=== PATIENT | male | born 1945 | race Hispanic/Latino ===

== ENCOUNTER 2018-07-21 16:11 | Emergency (ER) | payer MEDICARE ==
[2018-07-21 17:16] LABS: #Eosinphils 0.3 thou/uL (0.0-0.7); #Lymphocytes 2.1 thou/uL (1.20-3.40); #Monocytes 0.6 thou/uL (0.11-0.59); #Neutrophils 5.7 thou/uL (1.40-6.50); %Basophils 0.3 % (0.0-1.0); %Eosinophils 3.4 % (0.0-10.0); %Lymphocytes 24.1 % (21.0-51.0); %Monocytes 7.1 % (0.0-10.0); Hemoglobin 13.1 g/dL (14.0-18.0); Mean Corpuscular HGB CONC 30.8 g/dL (32.0-36.0); Mean Corpuscular Hemoglobin 26.9 pg (27.0-31.0); Mean Corpuscular Volume 87.1 fL (78.0-98.0); Mean Platelet Volume 7.6 fL (7.4-10.4); Platelet Count 232 thou/uL (130-400); RBC Distribution Width 13.5 % (11.5-14.5); Red Blood Cell (RBC) Count 4.89 mill/uL (4.70-6.10); White Blood Cell (WBC) Count 8.8 thou/uL (4.8-10.8)
[2018-07-21 17:36] LABS: ALT (SGPT) 14 U/L (8-55); AST (SGOT) 20 U/L (5-34); Alkaline Phosphatase 82 U/L (40-150); Anion Gap 12 mmol/L (10-20); BUN (Urea Nitrogen) 34 mg/dL (8.4-25.7); Bilirubin, Total 0.7 mg/dL (0.2-1.2); Calc. Creatinine Clearance 0 mL/min (70-130); Calcium 9.4 mg/dL (7.8-10.44); Carbon Dioxide 29 mmol/L (23-31); Chloride 105 mmol/L (98-107); Estimated GFR-MDRD 27; Glucose 179 mg/dL (83-110); Potassium 4.1 mmol/L (3.5-5.1); Sodium 142 mmol/L (136-145)
[2018-07-21 17:41] LABS: CKMB 5.5 ng/mL (0-6.6); Troponin I Less than 0.010 ng/mL (< 0.028)
--- NOTE | 2018-07-21 17:43 | RAD ---
FRONTAL VIEW CHEST: 07/21/18 COMPARISON: 04/11/03 INDICATION: Dyspnea. FINDINGS: There is air density underlying the left hemidiaphragm which favors a gastric bubble. There is also l ucent appearance of the cephalad aspect of the right hemidiaphragm. Mild left basilar atelectasis is seen. The cardiac silhouette is normal in size. IMPRESSION: Subtle lucency overlying the cephalad aspect of the right hemidiaphragm. This is favored to reflex brown perimposition of lung parenchyma, but the possibility of free air cannot be excluded. If there is con cern for an acute abdomen, recommend CT of the abdomen to further assess. Left basilar atelectasis. POS: [facility]
[2018-07-21] MEDS ORDERED: Furosemide 40 MG/4 ML VIAL ONE (17:58)
== END 2018-07-21 19:00 | disposition home or self-care (01) ==
LOC: ERS 16:11
DX: R60.0 Localized edema (principal); I10 Essential (primary) hypertension; E11.9 Type 2 diabetes mellitus without complications; E78.00 Pure hypercholesterolemia, unspecified; Z87.891 Personal history of nicotine dependence; Z79.82 Long term (current) use of aspirin; Z79.899 Other long term (current) drug therapy
CPT/HCPCS: 36415; 71045; 80053; 82553; 83880; 84484; 85025; 93005; 96374; J1940

== ENCOUNTER 2020-08-14 17:49 | Inpatient (IN) | payer MEDICARE ==
[~2020-08-14 17:49] MED LIST: Iopamidol-370 76% 500 ML 1 ML ONE
[2020-08-14 18:33] LABS: #Eosinphils 0.1 thou/uL (0.0-0.7); #Monocytes 0.6 thou/uL (0.11-0.59); #Neutrophils 5.2 thou/uL (1.40-6.50); %Basophils 0.1 % (0.0-1.0); Mean Corpuscular HGB CONC 32.1 g/dL (32.0-36.0); Mean Corpuscular Hemoglobin 27.8 pg (27.0-31.0); Mean Corpuscular Volume 86.5 fL (78.0-98.0); Mean Platelet Volume 8.4 fL (7.4-10.4); Platelet Count 236 thou/uL (130-400); RBC Distribution Width 14.3 % (11.5-14.5); Red Blood Cell (RBC) Count 4.68 mill/uL (4.70-6.10); White Blood Cell (WBC) Count 7.8 thou/uL (4.8-10.8)
[2020-08-14 18:55] LABS: ALT (SGPT) 13 U/L (8-55); AST (SGOT) 19 U/L (5-34); Albumin 3.5 g/dL (3.4-4.8); Alkaline Phosphatase 75 U/L (40-110); Anion Gap 11 mmol/L (10-20); BUN (Urea Nitrogen) 18 mg/dL (8.4-25.7); Bilirubin, Total 0.5 mg/dL (0.2-1.2); Calc. Creatinine Clearance 0 mL/min (70-130); Calcium 8.9 mg/dL (7.8-10.44); Carbon Dioxide 30 mmol/L (23-31); Chloride 103 mmol/L (98-107); Globulin 2.9 g/dL (2.4-3.5); Glucose 155 mg/dL (83-110); Lipase 7 U/L (8-78); Potassium 4.1 mmol/L (3.5-5.1); Protein, Total 6.4 g/dL (5.8-8.1); Sodium 140 mmol/L (136-145)
[2020-08-14] MEDS ORDERED: Cefepime 2 GM VIAL ONE (19:51)
--- NOTE | 2020-08-14 19:55 | RAD ---
SINGLE VIEW OF THE CHEST: 08/14/20 COMPARISON: 07/21/18. HISTORY: Altered mental status. FINDINGS: Single view of the chest shows an enlarged cardiomediastinal silhouette. Atherosclerotic calcificatio ns are seen in the aorta. There is no evidence of consolidation, mass, or pleural effusion. Degenerat dany changes are seen in the spine. IMPRESSION: Cardiomegaly. POS: [facility]
[2020-08-14 20:04] LABS: Bacteria/HPF None Seen HPF (None Seen); Bilirubin Negative (Negative); Blood, Urine 1+ (Negative); Clarity Clear (Clear); Glucose, Urine (Dipstick) 30 mg/dL (Negative); Ketone, Urine Negative (Negative); Leukocyte Negative Leu/uL (Negative); Mucous/LPF 1+ LPF (<2+); Nitrite Negative (Negative); Protein, Urine (Dipstick) 300 mg/dL (Neg-Trace); RBC/HPF 0-3 HPF (0-3); Specific Gravity, Urine 1.017 (1.002-1.036); Squamous Epithelial None Seen HPF (0-3); Urobilinogen Normal mg/dL (Less than 2); WBC/HPF None Seen HPF (0-3)
[2020-08-14 20:13] LABS: Amphetamine Not Detected (NotDetected); Barbiturates Screen Not Detected (NotDetected); Benzodiazepine Screen Not Detected (NotDetected); Cocaine Metabolite Screen Not Detected (NotDetected); Medtox Control Line Valid? VALID (VALID); Medtox Reader # READER 4; Methadone Not Detected (NotDetected); Methamphetamine Not Detected (NotDetected); Opiate Screen Not Detected (NotDetected); Oxycodone Screen Detected (NotDetected); Phencyclidine (PCP) Not Detected (NotDetected); THC/Cannabinoid Screen Not Detected (NotDetected); Tricyclic Screen Not Detected (NotDetected)
--- NOTE | 2020-08-14 20:47 | CT ---
CT CERVICAL SPINE WITHOUT CONTRAST: 08/14/20 COMPARISON: None. HISTORY: Altered mental status. TECHNIQUE: Multiple contiguous axial images were obtained in a CT of the cervical spine without contrast. Sagit rufino and coronal reformats were performed. FINDINGS: There are moderate degenerative changes in the cervical spine. Vertebral bodies demonstrate normal he ight without acute fracture or subluxation. No prevertebral soft tissue swelling is seen. The posterior facets are well aligned. Normal alignment of the skull base with the cervical spine is seen. The lung apices are unremarkable. No cervical adenopathy is appreciated. IMPRESSION: Degenerative changes of the cervical spine without acute osseous abnormality. POS: [facility]
[2020-08-14] MEDS ORDERED: niCARdipine 20MG In NaCl 20 MG/200 ML BAG ONE (20:52)
[2020-08-14] MEDS ORDERED: Naloxone HCl 2 mg/2 ml Syringe ONE (20:52)
[2020-08-14] MEDS ORDERED: Lorazepam 2 MG/ML VIAL ONE (21:06)
--- NOTE | 2020-08-14 21:10 | CT ---
CT OF THE BRAIN WITHOUT CONTRAST: Date: 08/14/2020 COMPARISON: None. HISTORY: Altered mental status with possible urinary tract infection. TECHNIQUE: Multiple contiguous axial images were obtained in a CT of the brain without contrast. FINDINGS: There are scattered hypodensities in the subcortical and periventricular white matter, likely seconda ry to small vessel ischemic disease. No large confluent infarction is seen. There is no evidence of h ydrocephalus, intracranial hemorrhage, or extra-axial fluid collections. There is extra-axial calcifi cation along the right frontal convexity measuring 1.2 cm in size which could represent a calcified m eningioma. There is opacification of right maxillary sinus with high density debris within the sinus. The other paranasal sinuses and mastoid air cells are well aerated. IMPRESSION: 1. No evidence of acute intracranial abnormality. 2. Possible right frontal calcified meningioma. 3. Chronic right maxillary sinus disease. POS: [facility]
--- NOTE | 2020-08-14 21:16 | CT ---
CT ABDOMEN AND PELVIS WITH CONTRAST: Date: 08/14/2020 COMPARISON: None. HISTORY: Fever and altered mental status. TECHNIQUE: Multiple contiguous axial images were obtained in a CT of the abdomen and pelvis with contrast. Sagit rufino and coronal reformats were performed. FINDINGS: The kidneys are small and lobulated in appearance. No hydronephrosis is seen. No focal abnormality is seen in the urinary bladder or either ureter. The gallbladder is distended, which may be secondary to a fasting state. No obvious calcified gallsto ranjeet are seen in the gallbladder. The liver, adrenal glands, spleen, and pancreas are unremarkable. No free air, free fluid, or stranding changes are seen in the abdomen or pelvis. There are a few scat tered diverticula in the colon. The small bowel is normal in caliber. No abdominal or pelvic lymphade nopathy are seen. Atherosclerotic calcifications are seen in the aorta. Dependent atelectasis is seen in the lung bases. The abdominal wall soft tissues are unremarkable. De generative changes are seen in the spine. Degenerative changes are seen in both hips. IMPRESSION: 1. No evidence of acute intra-abdominal/pelvic abnormality. 2. Small kidneys may be secondary to chronic renal disease. 3. Distended gallbladder may be secondary to a fasting state. POS: [facility]
[2020-08-14] MEDS ORDERED: Haloperidol Lactate 5 MG/ML VIAL ONE (21:27)
[2020-08-14 21:55] LABS: Troponin I 0.025 ng/mL (< 0.028)
[2020-08-14] MEDS ORDERED: Ziprasidone 20 MG VIAL IM SCH (22:00)
[2020-08-14] MEDS ORDERED: Sterile Water 10 ML VIAL FS PRN (22:00)
[2020-08-14] MEDS ORDERED: Dextrose 50% Abboject 50 ML SYRINGE SLOW IVP PRN (22:38)
[2020-08-14] MEDS ORDERED: Dextrose 5% in Water 1,000 ML IV PRN (22:38)
[2020-08-14] MEDS ORDERED: Vancomycin 1.5 GRAM/300 ML BAG 1.5 GM in Premix Bag 1 BAG IVPB SCH (22:45)
[2020-08-15] MEDS: niCARdipine 25 MG in Sodium Chloride 0.9% 250 ML 240 ML IVPB SCH ×3 (01:21→20:53)
--- NOTE | 2020-08-15 01:47 | HP ---
REASON FOR ADMISSION: Change in mental status. HISTORY OF PRESENT ILLNESS: This is a 74-year-old male patient, who 24 hours ago was noted to be behaving normally and very oriented. Today woke up around 8 a.m., asked his to give him oxycodone for his back pain, which he takes on a daily basis. He then went to sleep until 2 p.m. when he woke up, he was noted to be confused, although was able to follow command and eat his lunch. His thought that he was hypoglycemic, so she gave him peanut butter and other things to eat, then he went back to sleep and woke up around 4 p.m. only saying the word "okay" and then seeing "who am I, I am okay." The confusion got worse. The was concerned. She brought him to the ER where he appeared to be confused and tremulous, clenching on his teeth. Sometimes his pupils were pinpoint. He was given a dose of Narcan without a significant change in his mental status. He was given Ativan. He is currently a bit calmer. His blood pressure was noted to be a systolic of above 200. His is not sure whether he has been taking his blood pressure medications or not, but she is the one who dispenses oxycodone, which she has been giving him 3 tablets a day over the past year. Before that, he was taking 6 tablets per day and that caused him to be slightly confused and that is why she decreased his dose, but he has been on the same dose for the past year. No major changes in his current medications. His last visit to the emergency room was for bilateral lower extremity swelling and he does follow with his education nurse. His denies any fevers or chills. No nausea. No vomiting. No sick contacts. No diarrhea. Denies any tonic-clonic movements. PAST MEDICAL HISTORY: 1. Osteoarthritis. 2. Back pain. He does use crutches to ambulate. 3. Chronic kidney disease stage 3. 4. Coronary artery disease. 5. Diabetes type 2. He does have an insulin pump. 6. High blood pressure. 7. High cholesterol. 8. Bladder incontinence. 9. Psoriasis. 10. He is status post knee replacement. SOCIAL HISTORY: He stopped smoking 50 years ago. Does not drink alcohol. Does not use illegal substance. FAMILY HISTORY: Negative for premature coronary artery disease. REVIEW OF SYSTEMS: Unable to obtain due to his confusion. PHYSICAL EXAMINATION: GENERAL: He is awake, but he is confused. He does not follow commands. He is tremulous, sometimes clenching on his teeth. His systolic is 210. He is oxygenating well. He is not hypoxic. He is not febrile. HEENT: His head is nontraumatic, normocephalic. Pupils are pinpoint and equal bilaterally. NECK: Supple. No adenopathy. No murmur. Thyroid is not palpable. Trachea is midline. No supraclavicular adenopathy. HEART: S1, S2 regular. No murmurs. No gallops. No friction rubs. No displacement of PMI. LUNGS: Clear to auscultation bilaterally. No wheezes, rhonchi, or crackles. ABDOMEN: Bowel sounds are positive. Nontender abdomen. No hepatosplenomegaly. EXTREMITIES: No lower extremity edema. No cyanosis. NEUROLOGIC: Unable to fully assess. He is moving all his 4 extremities. No focal neurological weakness. LABORATORY DATA: Blood work shows WBC 7.8, hemoglobin 13, platelets of 236. Sodium is 140; potassium 4.1; bicarb of 30; creatinine 1.8, previous creatinine was 2; glucose 111. Lipase is 7. Urinalysis shows 1+ blood, but no leukocyte esterase, no nitrites. Urine tox screen shows oxycodone detected. His chest x-ray shows cardiomegaly. His CT abdomen and pelvis shows no acute intraabdominal/pelvic abnormality, small kidneys, distended gallbladder, maybe secondary to a fasting state. Cervical spine CT shows degenerative changes without acute abnormality. EKG shows sinus bradycardia. QTc is normal per my read. ASSESSMENT AND PLAN: This is a 74-year-old male patient who is presenting with confusion, underlying cause remains not very clear, could be related to metabolic encephalopathy, possibly a stroke, maybe seizures. Also I am considering meningitis/encephalitis. We are unable to do an LP because of his constant motion and confusion. Neuro: Patient will have frequent neuro checks. We will consult Neurology. We will cover the possibility of encephalitis and meningitis by giving him IV Rocephin, vancomycin, and acyclovir. Adjusted his kidney function. In a.m., if he is calmer, we might consider doing an MRI of the brain. Endocrinology: The patient is diabetic. He does have an insulin pump, which will be stopped and we will use our insulin sliding scale. For DVT prophylaxis, he will be on heparin subcutaneously and SCDs. For his chronic renal insufficiency, it seems that he is at his baseline. Continue to monitor. For his high blood pressure, we will start him on a nicardipine drip. For that reason, he will be admitted to the CCU. We will aim for a systolic blood pressure of 160. The goal is not to drop his blood pressure too much since stroke is in the differential. The patient is a full code. TIME SPENT: One hour of critical care time was spent to manage this patient. Job ID: [id number]
[2020-08-15 02:21] LABS: SARS-CoV-2 NAA Rapid Test Not Detected (NotDetected)
[2020-08-15 03:39] LABS: #Lymphocytes 2.1 thou/uL (1.20-3.40); #Monocytes 0.6 thou/uL (0.11-0.59); #Neutrophils 7.8 thou/uL (1.40-6.50); %Basophils 0.2 % (0.0-1.0); %Eosinophils 0.4 % (0.0-10.0); %Monocytes 5.6 % (0.0-10.0); %Neutrophils 73.9 % (42.0-75.0); Mean Corpuscular HGB CONC 32.2 g/dL (32.0-36.0); Mean Corpuscular Hemoglobin 28.1 pg (27.0-31.0); Mean Corpuscular Volume 87.3 fL (78.0-98.0); Mean Platelet Volume 8.3 fL (7.4-10.4); Platelet Count 227 thou/uL (130-400); RBC Distribution Width 14.2 % (11.5-14.5); Red Blood Cell (RBC) Count 4.26 mill/uL (4.70-6.10); White Blood Cell (WBC) Count 10.5 thou/uL (4.8-10.8)
[2020-08-15 04:03] LABS: Anion Gap 15 mmol/L (10-20); BUN (Urea Nitrogen) 18 mg/dL (8.4-25.7); Calc. Creatinine Clearance 57 mL/min (70-130); Calcium 8.4 mg/dL (7.8-10.44); Carbon Dioxide 23 mmol/L (23-31); Chloride 105 mmol/L (98-107); Glucose 188 mg/dL (83-110); Potassium 4.2 mmol/L (3.5-5.1); Sodium 139 mmol/L (136-145)
--- NOTE | 2020-08-15 08:07 | CON ---
DATE OF CONSULTATION: 08/15/2020 This encompasses 75 minutes of time. Of that time, greater than 50% was spent with the patient and/or the patient's unit in the hospital. REASON FOR CONSULTATION: ICU management. HISTORY OF PRESENT ILLNESS: The patient is a 74-year-old male, who presented to the ER last night. He had been acting abnormally since about 2:00 p.m. yesterday afternoon. There is a question whether or not this could be secondary to a narcotic overdose. He was also noted to have a severely elevated blood pressure, has been placed on a nicardipine drip. At the current time, the patient is arousable, can answer some simple questions, but cannot provide any answers as to what is going on. PAST MEDICAL HISTORY: 1. Osteoarthritis. 2. Chronic back pain. 3. Chronic kidney disease, stage 3. 4. Coronary artery disease. 5. Diabetes mellitus, type 2, requiring insulin. 6. Hypertension. 7. Hyperlipidemia. 8. Incontinence of bladder. 9. Psoriasis. PAST SURGICAL HISTORY: Knee replacement. SOCIAL HISTORY: Quit smoking 50 years ago. Does not consume alcohol. FAMILY MEDICAL HISTORY: Unremarkable. REVIEW OF SYSTEMS: Cannot obtain secondary to the patient's disorientation. MEDICATIONS: Prior to admission; 1. Oxycodone 10 mg t.i.d. 2. Valsartan 160 mg daily. 3. Clobetasol topical ointment b.i.d. 4. Tamsulosin 0.4 mg daily. 5. Aricept 5 mg daily. 6. Carvedilol, unknown dose. PHYSICAL EXAMINATION: VITAL SIGNS: Heart rate 65, blood pressure 153/77, O2 saturation 97%, respiratory rate 23, and temperature 97.3. GENERAL: The patient is a heavyset male. He is 5 feet and 11 inches, weighs 251 pounds with a BMI of 35. I find him lying in bed. He is arousable. He can tell me his first name. He cannot tell me where he is or was going on. NEUROLOGICAL: His pupils are 2 mm and reactive to light. His tongue protrudes midline. He is able to move all 4 extremities to stimulation without difficulty. He has sensation throughout. HEENT: Remarkable for class IV Mallampati airway. NECK: Has no adenopathy or JVD. LUNGS: Clear without wheezing or rhonchi. CARDIOVASCULAR: Regular without murmur. Pulses 2+/4 throughout. ABDOMEN: Soft and nontender to palpation. EXTREMITIES: No clubbing, cyanosis, or edema. LABORATORY DATA: White blood cell count 10.5, hematocrit 37.1, platelet count 227 with 73% neutrophils, 20% lymphocytes, no bands. Sodium 139, potassium 4.2, chloride 105, CO2 of 23, BUN 18, creatinine 1.8, and glucose 188. Troponin 0.4. Urinalysis shows proteinuria. Tox screen positive for oxycodone. COVID test was negative. Brain CT was remarkable for possible right frontal calcified meningioma. CT of the cervical spine showed degenerative changes. An abdominal pelvis CT was essentially unremarkable. Chest x-ray demonstrates slightly enlarged cardiac size without evidence of mass, effusion, or infiltrate. ASSESSMENT: 1. Metabolic encephalopathy. I would favor oxycodone as being the cause of this. Hypertensive encephalopathy would also be in the differential. Infectious causes seem less likely. 2. Hypertension. 3. Diabetes mellitus. RECOMMENDATIONS: 1. Agree with Neurology consult. 2. The patient has been placed on empiric antibiotics and acyclovir by the [facility]. Lumbar puncture may be necessary and Neurology has been consulted for that. 3. Nicardipine drip for hypertension. 4. Blood sugar management. 5. He can be moved to the stroke floor once he is weaned off the nicardipine drip. Job ID: [id number]
[2020-08-15] MEDS: Heparin 5,000 UNITS/ML VIAL SC SCH ×3 (08:33→20:51)
[2020-08-15] MEDS: cefTRIAXone\\ROCEPHIN 2 GM in Sodium Chloride 0.9% 100 ML IVPB SCH ×2 (08:33→20:51)
[2020-08-15] MEDS ORDERED: oxyCODONE/Acetaminophen 5 mg/325 mg Tablet PO PRN (10:39)
--- NOTE | 2020-08-15 13:53 | PDOC.EEG ---
Neurology EEG Report - Report Report: This EEG was performed using 24 channel [employer] video digital EEG machine with 24 disc electrodes. This was an extended 2-hours 6 minutes of inpatient video EEG recording. Digital analysis of the EEG was done for Dom and seizure detection which revealed no abnormalities Background: The posterior background rhythm is not observed. Hyperventilation: Not performed. Photic stimulation. Bioccipital symmetric response seen with photic stimulation. Sleep: No stage change was observed EEG diagnosis: Generalized irregular theta activity seen during the recording. Nonsustained posterior background rhythm. Clinical interpretation: This EEG is consistent with moderate generalized nonspecific cerebral dysfunction.
--- NOTE | 2020-08-15 14:48 | CON ---
DATE OF CONSULTATION: 08/15/2020 REASON FOR CONSULTATION: Altered mental status. HISTORY OF PRESENT ILLNESS: Mr. Ahn is a 74-year-old male with medical history significant for coronary artery disease, diabetes, hypertension, hyperlipidemia, presented to the emergency room because of altered mental status. History is obtained from review of the medical records. Per records, he woke up around 8:00 a.m. on 08/14/2020 and asked his to give him oxycodone for his back pain, which he takes on a daily basis. He went to sleep around 2 p.m. and then woke up and was extremely confused, but he was able to follow commands and eat his lunch around 4 p.m. He continuously saying the sentences like "I'm okay" and confusion got extremely worse, so decided to bring him to the emergency room for further evaluation. In the emergency room, he was found to be confused, tremulous with clenching his teeth, and he was given a dose of Narcan without significant change in his mental status. He was also given Ativan because of increased aggression and admitted to the CCU for further management. The denies any focal weakness, focal paresthesias, nausea, vomiting, headache, chest pain, abdominal pain, or abnormal seizure activity. REVIEW OF SYSTEMS: All systems reviewed and were negative except the pertinent positives and negatives mentioned in the HPI. PAST MEDICAL HISTORY: Coronary artery disease; chronic kidney disease, stage 3; diabetes mellitus, type 2; hypertension; hyperlipidemia; bladder incontinence; osteoarthritis. PAST SURGICAL HISTORY: Status post knee replacement. SOCIAL HISTORY: The patient stopped smoking 50 years ago. There is no history of drinking or illegal drug use. FAMILY HISTORY: No significant history of coronary artery disease. MEDICATIONS: Valsartan Flomax Hydrocodone ALLERGIES: NKDA PHYSICAL EXAMINATION: 171/97 77 GENERAL: The patient is awake, but confused. He does not follow commands. He does not maintain eye contact. CVS: Regular rate and rhythm. CHEST: Clear. ABDOMEN: Soft. NECK: Supple. NEUROLOGIC: Mental status, the patient is alert, awake, but does not follow command or does not maintain eye contact. He is extremely somnolent. Motor, muscle tone and bulk are normal. Moving all 4 extremities equally and symmetrically. Spontaneous movement of all 4 extremities seen. Cerebellar, unable to cooperate with the exam. Sensory, withdraws all 4 extremities to nailbed pressure. Cranial nerves, pupils 4 mm, round, and reactive to light. Face symmetric. Tongue midline. Moves neck in both direction. Hearing seems to be intact. Gait deferred due to the patient's safety reason. DATA REVIEWED: Labs were reviewed and also the CT scan, which did not reveal any acute intracranial pathology. Cervical spine CT showed degenerative changes without acute pathology. EKG showed normal sinus rhythm. ASSESSMENT AND PLAN: Mr. Anabelle Rodrigez is a 74-year-old male who presented with altered mental status. Altered mental status seems to be multifactorial, but most likely secondary to metabolic encephalopathy or hydrocodone or maybe secondary to narcotic abuse. Stroke seems less likely in the absence of focal neurological deficits. Head CT reviewed, which was negative for acute intracranial pathology. Consider MRI of the brain when stable. EEG reviewed which was negative for seizure activity. Continue neuro checks every 4 hours. Continue home medications. Continue n.p.o. until cleared by Speech. PT/OT/Speech. Continue medical management per primary team. We will continue to follow. Thank you for the consult. Job ID: [id number] [facility]
[2020-08-15] MEDS: Tamsulosin HCl 0.4 MG CAP PO SCH (20:53)
[2020-08-15] MEDS ORDERED: Vancomycin 1 GM in Premix Bag 1 BAG IVPB SCH (22:28)
[2020-08-15] MEDS ORDERED: Vancomycin HCl 1.25 GM in Sodium Chloride 0.9% 250 ML 250 ML IVPB SCH (23:00)
[2020-08-16] MEDS: niCARdipine 25 MG in Sodium Chloride 0.9% 250 ML 240 ML IVPB SCH (02:39)
[2020-08-16] MEDS ORDERED: FLU VACC QS2020-21(65YR UP)/PF 240 MCG/0.7 ML SYRINGE IM ONE (07:30)
[2020-08-16] MEDS: Heparin 5,000 UNITS/ML VIAL SC SCH ×3 (08:33→20:32)
[2020-08-16] MEDS: Valsartan 80 MG TAB PO SCH (08:33)
--- NOTE | 2020-08-16 08:44 | PRG ---
DATE OF SERVICE: 08/16/2020 SUBJECTIVE: The patient is much more awake and alert, seems back to baseline. OBJECTIVE: VITAL SIGNS: Temperature 97.9, pulse 66, blood pressure 159/72, O2 saturation 96%. HEENT: Unremarkable. NECK: No JVD. CHEST: Clear. CARDIAC: S1, S2. Regular. ABDOMEN: Soft. EXTREMITIES: No edema. LABORATORY DATA: No new labs were obtained today. ASSESSMENT: Presumed oxycodone overdose-neurologic symptoms, now resolved. PLAN: 1. To be transferred to floor. 2. Antihypertensive has been started. 3. Discontinue antibiotics, does not appear to be a case of meningitis. 4. No further pulmonary recommendations. I will sign off. Job ID: [id number]
[2020-08-16 08:47] LABS: #Eosinphils 0.3 thou/uL (0.0-0.7); #Lymphocytes 2.1 thou/uL (1.20-3.40); #Monocytes 0.7 thou/uL (0.11-0.59); #Neutrophils 5.1 thou/uL (1.40-6.50); %Basophils 0.2 % (0.0-1.0); %Eosinophils 3.3 % (0.0-10.0); %Lymphocytes 25.8 % (21.0-51.0); %Monocytes 8.8 % (0.0-10.0); %Neutrophils 61.9 % (42.0-75.0); Hemoglobin 12.5 g/dL (14.0-18.0); Mean Corpuscular HGB CONC 31.6 g/dL (32.0-36.0); Mean Corpuscular Hemoglobin 27.7 pg (27.0-31.0); Mean Corpuscular Volume 87.9 fL (78.0-98.0); Platelet Count 216 thou/uL (130-400); White Blood Cell (WBC) Count 8.2 thou/uL (4.8-10.8)
[2020-08-16 09:08] LABS: ALT (SGPT) 11 U/L (8-55); AST (SGOT) 16 U/L (5-34); Albumin 3.1 g/dL (3.4-4.8); Alkaline Phosphatase 65 U/L (40-110); Anion Gap 12 mmol/L (10-20); BUN (Urea Nitrogen) 20 mg/dL (8.4-25.7); Bilirubin, Total 0.7 mg/dL (0.2-1.2); Calc. Creatinine Clearance 57 mL/min (70-130); Calcium 8.3 mg/dL (7.8-10.44); Carbon Dioxide 24 mmol/L (23-31); Chloride 107 mmol/L (98-107); Globulin 2.7 g/dL (2.4-3.5); Glucose 147 mg/dL (83-110); Potassium 3.9 mmol/L (3.5-5.1); Protein, Total 5.8 g/dL (5.8-8.1); Sodium 139 mmol/L (136-145)
[2020-08-16 09:12] LABS: Troponin I 0.035 ng/mL (< 0.028)
[2020-08-16] MEDS ORDERED: ALPRAZolam 0.5 MG TAB PO SCH (09:15)
[2020-08-16] MEDS: Amlodipine 10 MG TAB PO SCH (09:37)
[2020-08-16 11:01] VITALS: BMI 35.3
--- NOTE | 2020-08-16 12:48 | PDOC.NEUPN ---
- Subjective Encounter Date: 08/16/20 Subjective: Mr. Ahn is much improved this morning and is alert and oriented to person and place. He is following commands appropriately. - Objective Vital Signs & Weight: Vital Signs (12 hours) Temp Pulse BP Pulse Ox 08/16/20 11:00 98.2 F 08/16/20 09:37 70 174/95 H 08/16/20 07:17 98 08/16/20 07:00 97.9 F 08/16/20 04:00 97.8 F Weight Admit Weight 253 lb Weight 253 lb 1.451 oz Most Recent Monitor Data Heart Rate from ECG 77 NIBP 157/96 NIBP BP-Mean 116 Respiration from ECG 18 SpO2 95 I&O: 08/15/20 08/16/20 08/17/20 06:59 06:59 06:59 Intake Total 476 1743 448 Output Total 800 Balance 476 943 448 Result Diagrams: 08/16/20 08:39 08/16/20 08:39 Additional Labs: Accuchecks 08/16/20 08/16/20 08/15/20 11:50 05:44 23:20 POC Glucose 159 H 149 H 125 H Radiology Reviewed by me: Yes EKG Reviewed by me: Yes ROS - Review of Systems Constitutional: denies: fever, chills, sweats, weakness, malaise, other Eyes: denies: pain, vision change, conjunctivae inflammation, eyelid inflammation, redness, other ENT: denies: ear pain, ear discharge, nose pain, nose discharge, nose congestion, mouth pain, mouth swelling, throat pain, throat swelling, other Respiratory: denies: cough, dry, shortness of breath, hemoptysis, SOB with excertion, pleuritic pain, sputum, wheezing, other All Systems: All other systems reviewed; all pertinent +/- noted in HPI/Subj - Medication Medications: Active Medications Generic Name Dose Route Start Last Admin Trade Name Freq PRN Reason Stop Dose Admin Amlodipine Besylate 10 mg 08/16/20 09:00 08/16/20 09:37 Amlodipine 10 Mg Tab PO 10 mg DAILY SHAVON Administration Heparin Sodium (Porcine) 5,000 units 08/15/20 09:00 08/16/20 08:33 Heparin 5,000 Units/Ml Vial SC 5,000 units TID SHAVON Administration Sodium Chloride 10 ml 08/15/20 09:00 08/16/20 08:34 Flush - Normal Saline 10 Ml Syringe IVF 10 ml Q12HR SHAVON Administration Tamsulosin HCl 0.4 mg 08/15/20 21:00 08/15/20 20:53 Tamsulosin Hcl 0.4 Mg Cap PO 0.4 mg HS SHAVON Administration Valsartan 160 mg 08/16/20 09:00 08/16/20 08:33 Valsartan 80 Mg Tab PO 160 mg DAILY SHAVON Administration - Exam General Appearance: awake alert Eye: PERRL ENT: normocephalic atraumatic Neck: supple Respiratory: CTAB Cardiovascular: RRR Gastrointestinal: soft Extremities: no cyanosis Skin: normal turgor Neurological: CN's grossly intact, normal sensation to touch, no weakness, no focal deficits, no new deficit Musculoskeletal: normal tone, normal strength, no muscle wasting PSYCH: normal affect, normal behavior, oriented to person, oriented to place Results - Labs Result Diagrams: 08/16/20 08:39 08/16/20 08:39 Lab results: WBC 8.2 thou/uL (4.8-10.8) 08/16/20 08:39 Hgb 12.5 g/dL (14.0-18.0) L 08/16/20 08:39 Hct 39.5 % (42.0-52.0) L 08/16/20 08:39 MCV 87.9 fL (78.0-98.0) 08/16/20 08:39 Plt Count 216 thou/uL (130-400) 08/16/20 08:39 Neutrophils % 61.9 % (42.0-75.0) 08/16/20 08:39 Sodium 139 mmol/L (136-145) 08/16/20 08:39 Potassium 3.9 mmol/L (3.5-5.1) 08/16/20 08:39 Chloride 107 mmol/L (98-107) 08/16/20 08:39 Carbon Dioxide 24 mmol/L (23-31) 08/16/20 08:39 BUN 20 mg/dL (8.4-25.7) 08/16/20 08:39 Creatinine 1.78 mg/dL (0.7-1.3) H 08/16/20 08:39 Glucose 147 mg/dL (83-110) H 08/16/20 08:39 Lactic Acid 1.2 mmol/L (0.5-2.2) 08/14/20 18:22 Calcium 8.3 mg/dL (7.8-10.44) 08/16/20 08:39 Total Bilirubin 0.7 mg/dL (0.2-1.2) 08/16/20 08:39 AST 16 U/L (5-34) 08/16/20 08:39 ALT 11 U/L (8-55) 08/16/20 08:39 Alkaline Phosphatase 65 U/L (40-110) 08/16/20 08:39 Ammonia 27 umol/L (18-72) 08/16/20 08:39 Troponin I 0.035 ng/mL (< 0.028) H 08/16/20 08:39 Serum Total Protein 5.8 g/dL (5.8-8.1) 08/16/20 08:39 Albumin 3.1 g/dL (3.4-4.8) L 08/16/20 08:39 Lipase 7 U/L (8-78) L 08/14/20 18:22 Urine Ketones Negative mg/dL (Negative) 08/14/20 19:47 Urine Blood 1+ (Negative) A 08/14/20 19:47 Urine Nitrite Negative (Negative) 08/14/20 19:47 Ur Leukocyte Esterase Negative Jennifer/uL (Negative) 08/14/20 19:47 Urine RBC 0-3 HPF (0-3) 08/14/20 19:47 Urine WBC None Seen HPF (0-3) 08/14/20 19:47 Ur Squamous Epith Cells None Seen HPF (0-3) 08/14/20 19:47 Urine Bacteria None Seen HPF (None Seen) 08/14/20 19:47 - Radiology Interpretation CT scan - head Additional Comment: Head CT did not reveal acute intracranial pathology. PN A/P (1) AMS (altered mental status) Code(s): R41.82 - ALTERED MENTAL STATUS, UNSPECIFIED Status: Acute (2) Hypertension Code(s): I10 - ESSENTIAL (PRIMARY) HYPERTENSION Status: Acute (3) Back pain Code(s): M54.9 - DORSALGIA, UNSPECIFIED Status: Acute (4) Hydrocodone use disorder, mild Code(s): F11.10 - OPIOID ABUSE, UNCOMPLICATED Status: Acute - Plan Daily Plan: PT/OT, speech therapy, DVT proph w/SCDs Mr. Ahn is a 74-year-old male who was brought to the hospital by his because of altered mental status and confusion. Altered mental status is now resolved with seizures most likely secondary to use of pain medications . Intracranial process seems less likely since absence of focal deficits on neurological exam and head CT was negative for acute intracranial pathology. EEG was also reviewed and was negative for seizure activity. Continue home medications. Continue medical management per primary team. PT/OT/speech DVT prophylaxis For control of blood pressure and blood glucose. Continue medical management per primary team. Plan discussed in detail with the primary attending Dr. Frias
[2020-08-16] MEDS: HumaLOG 300 UNITS/3 ML VIAL SC PRN ×3 (12:53→22:01)
--- NOTE | 2020-08-16 16:57 | PDOC.HOSPP ---
- Subjective Encounter Date: 08/15/20 Encounter Time: 12:30 Subjective: Patient drowsy but arousable. - Objective Vital Signs & Weight: Vital Signs (12 hours) Temp Pulse BP Pulse Ox 08/16/20 16:00 98.3 F 08/16/20 11:00 98.2 F 08/16/20 09:37 70 174/95 H 08/16/20 07:17 98 08/16/20 07:00 97.9 F Weight Admit Weight 253 lb Weight 253 lb 1.451 oz Most Recent Monitor Data Heart Rate from ECG 77 NIBP 167/78 NIBP BP-Mean 107 Respiration from ECG 18 SpO2 95 I&O: 08/15/20 08/16/20 08/17/20 06:59 06:59 06:59 Intake Total 476 1743 698 Output Total 800 Balance 476 943 698 Result Diagrams: 08/16/20 08:39 08/16/20 08:39 Additional Labs: Accuchecks 08/16/20 08/16/20 08/16/20 16:01 11:50 05:44 POC Glucose 158 H 159 H 149 H 08/15/20 23:20 POC Glucose 125 H Hospitalist ROS - Review of Systems Other: Unable to obtain - Medication Medications: Active Medications Generic Name Dose Route Start Last Admin Trade Name Freq PRN Reason Stop Dose Admin Amlodipine Besylate 10 mg 08/16/20 09:00 08/16/20 09:37 Amlodipine 10 Mg Tab PO 10 mg DAILY SHAVON Administration Heparin Sodium (Porcine) 5,000 units 08/15/20 09:00 08/16/20 14:49 Heparin 5,000 Units/Ml Vial SC 5,000 units TID SHAVON Administration Insulin Human Lispro 0 units 08/14/20 22:38 08/16/20 16:20 Humalog 300 Units/3 Ml Vial SC 2 unit .MILD SLIDING SCALE PRN Administration Mild Correctional Scale Sodium Chloride 10 ml 08/15/20 09:00 08/16/20 08:34 Flush - Normal Saline 10 Ml Syringe IVF 10 ml Q12HR SHAVON Administration Tamsulosin HCl 0.4 mg 08/15/20 21:00 08/15/20 20:53 Tamsulosin Hcl 0.4 Mg Cap PO 0.4 mg HS SHAVON Administration Valsartan 160 mg 08/16/20 09:00 08/16/20 08:33 Valsartan 80 Mg Tab PO 160 mg DAILY SHAVON Administration - Exam Heart: negative: RRR, no murmur, no gallops, no rubs, normal peripheral pulses, irregular, diminshed peripheral pulses, murmur present, II/IV, III/IV Respiratory: negative: CTAB, no wheezes, no rales, no ronchi, normal chest expansion, no tachypnea, normal percussion, rales, rhonchi, tachypneic, wheezes Gastrointestinal: negative: soft, non-tender, non-distended, normal bowel sounds, no palpable masses, no hepatomegaly, no splenomegaly, no bruit, no guarding, no rigidity, tender to palpation, distended, diminished bowl sounds, voluntary guarding Extremities: negative: no cyanosis, no clubbing, no edema, 1+ LE edema, 2+ LE edema, clubbing Hosp A/P (1) Acute metabolic encephalopathy Code(s): G93.41 - METABOLIC ENCEPHALOPATHY Status: Acute (2) Back pain Code(s): M54.9 - DORSALGIA, UNSPECIFIED Status: Acute (3) Hydrocodone use disorder, mild Code(s): F11.10 - OPIOID ABUSE, UNCOMPLICATED Status: Acute (4) Hypertension Code(s): I10 - ESSENTIAL (PRIMARY) HYPERTENSION Status: Acute - Plan Patient's at bedside questions answered. His encephalopathy most likely secondary to narcotic overdose. I do not suspect any meningitis. Neurology to see the patient. Patient was on Cardene drip which has been off will start patient's home medications.
--- NOTE | 2020-08-16 17:00 | PDOC.HOSPP ---
- Subjective Encounter Date: 08/16/20 Encounter Time: 10:30 Subjective: Patient up in bed more awake. - Objective Vital Signs & Weight: Vital Signs (12 hours) Temp Pulse BP Pulse Ox 08/16/20 16:00 98.3 F 08/16/20 11:00 98.2 F 08/16/20 09:37 70 174/95 H 08/16/20 07:17 98 08/16/20 07:00 97.9 F Weight Admit Weight 253 lb Weight 253 lb 1.451 oz Most Recent Monitor Data Heart Rate from ECG 77 NIBP 167/78 NIBP BP-Mean 107 Respiration from ECG 18 SpO2 95 I&O: 08/15/20 08/16/20 08/17/20 06:59 06:59 06:59 Intake Total 476 5473 698 Output Total 800 Balance 476 943 698 Result Diagrams: 08/16/20 08:39 08/16/20 08:39 Additional Labs: Accuchecks 08/16/20 08/16/20 08/16/20 16:01 11:50 05:44 POC Glucose 158 H 159 H 149 H 08/15/20 23:20 POC Glucose 125 H Hospitalist ROS - Review of Systems Cardiovascular: denies: chest pain, palpitations, orthopnea, paroxysmal noc. dyspnea, edema, light headedness, other Gastrointestinal: denies: nausea, vomiting, abdominal pain, diarrhea, constipation, melena, hematochezia, other Genitourinary: denies: dysuria, frequency, incontinence, hematuria, retention, other - Medication Medications: Active Medications Generic Name Dose Route Start Last Admin Trade Name Freq PRN Reason Stop Dose Admin Amlodipine Besylate 10 mg 08/16/20 09:00 08/16/20 09:37 Amlodipine 10 Mg Tab PO 10 mg DAILY SHAVON Administration Heparin Sodium (Porcine) 5,000 units 08/15/20 09:00 08/16/20 14:49 Heparin 5,000 Units/Ml Vial SC 5,000 units TID SHAVON Administration Insulin Human Lispro 0 units 08/14/20 22:38 08/16/20 16:20 Humalog 300 Units/3 Ml Vial SC 2 unit .MILD SLIDING SCALE PRN Administration Mild Correctional Scale Sodium Chloride 10 ml 08/15/20 09:00 08/16/20 08:34 Flush - Normal Saline 10 Ml Syringe IVF 10 ml Q12HR SHAVON Administration Tamsulosin HCl 0.4 mg 08/15/20 21:00 08/15/20 20:53 Tamsulosin Hcl 0.4 Mg Cap PO 0.4 mg HS SHAVON Administration Valsartan 160 mg 08/16/20 09:00 08/16/20 08:33 Valsartan 80 Mg Tab PO 160 mg DAILY SHAVON Administration - Exam Heart: negative: RRR, no murmur, no gallops, no rubs, normal peripheral pulses, irregular, diminshed peripheral pulses, murmur present, II/IV, III/IV Respiratory: negative: CTAB, no wheezes, no rales, no ronchi, normal chest expansion, no tachypnea, normal percussion, rales, rhonchi, tachypneic, wheezes Gastrointestinal: negative: soft, non-tender, non-distended, normal bowel sounds, no palpable masses, no hepatomegaly, no splenomegaly, no bruit, no g uarding, no rigidity, tender to palpation, distended, diminished bowl sounds, voluntary guarding Extremities: 1+ LE edema Hosp A/P (1) Acute metabolic encephalopathy Code(s): G93.41 - METABOLIC ENCEPHALOPATHY Status: Acute (2) Back pain Code(s): M54.9 - DORSALGIA, UNSPECIFIED Status: Acute (3) Hydrocodone use disorder, mild Code(s): F11.10 - OPIOID ABUSE, UNCOMPLICATED Status: Acute (4) Hypertension Code(s): I10 - ESSENTIAL (PRIMARY) HYPERTENSION Status: Acute - Plan Patient's at bedside questions answered. His encephalopathy most likely secondary to narcotic overdose. I do not suspect any meningitis. Neurology to see the patient. Patient was on Cardene drip which has been off will start patient's home medications. 08/16 patient up in bed more awake. Will start patient's home medications. Patient refused MRI brain. Antibiotics have been discontinued. Possible discharge in the next 24 to 48 hours
[2020-08-16] MEDS: Carvedilol 25 MG TAB PO SCH (18:08)
[2020-08-16] MEDS ORDERED: hydrALAZINE 20 MG/ML VIAL SLOW IVP SCH (20:00)
[2020-08-16] MEDS: Tamsulosin HCl 0.4 MG CAP PO SCH (20:31)
[2020-08-17] MEDS: Carvedilol 25 MG TAB PO SCH ×2 (08:24→16:01)
[2020-08-17] MEDS: hydrALAZINE 25 MG TAB PO SCH ×2 (08:24→20:32)
[2020-08-17] MEDS: Valsartan 80 MG TAB PO SCH (08:24)
[2020-08-17] MEDS: Amlodipine 10 MG TAB PO SCH (08:24)
[2020-08-17] MEDS: Heparin 5,000 UNITS/ML VIAL SC SCH ×3 (08:34→20:32)
--- NOTE | 2020-08-17 14:22 | PDOC.NEUPN ---
- Subjective Encounter Date: 08/17/20 Subjective: Patient more awake today but still has generalized weakness. - Objective Vital Signs & Weight: Vital Signs (12 hours) Temp Pulse Resp BP BP BP Pulse Ox 08/17/20 11:57 97.3 F L 56 L 18 154/80 H 95 08/17/20 07:15 97.9 F 60 18 188/81 H 95 08/17/20 05:29 70 180/89 H 08/17/20 04:03 98.2 F 61 18 180/89 H 93 L Weight Admit Weight 253 lb Weight 253 lb 1.451 oz Most Recent Monitor Data Heart Rate from ECG 77 NIBP 167/78 NIBP BP-Mean 107 Respiration from ECG 18 SpO2 95 I&O: 08/16/20 08/17/20 08/18/20 06:59 06:59 06:59 Intake Total 1743 1898 Output Total 800 Balance 943 1898 Result Diagrams: 08/16/20 08:39 08/16/20 08:39 Additional Labs: Accuchecks 08/17/20 08/17/20 08/16/20 11:35 04:40 20:40 POC Glucose 235 H 165 H 241 H 08/16/20 16:01 POC Glucose 158 H Radiology Reviewed by me: Yes EKG Reviewed by me: Yes ROS - Review of Systems Constitutional: denies: fever, chills, sweats, weakness, malaise, other Eyes: denies: pain, vision change, conjunctivae inflammation, eyelid inflammation, redness, other Gastrointestinal: denies: nausea, vomiting, abdominal pain, diarrhea, constipation, melena, hematochezia, other Genitourinary: denies: dysuria, frequency, incontinence, hematuria, retention, other Musculoskeletal: reports: neck pain, back pain, hand pain, leg pain. denies: shoulder pain, arm pain, foot pain, other Skin: denies: rash, lesions, corey, bruising, other Neurological: denies: weakness, numbness, incoordination, change in speech, confusion, seizures, other - Medication Medications: Active Medications Generic Name Dose Route Start Last Admin Trade Name Freq PRN Reason Stop Dose Admin Amlodipine Besylate 10 mg 08/16/20 09:00 08/17/20 08:24 Amlodipine 10 Mg Tab PO 10 mg DAILY SHAVON Administration Carvedilol 25 mg 08/16/20 17:00 08/17/20 08:24 Carvedilol 25 Mg Tab PO 25 mg BID-WM SHAVON Administration Heparin Sodium (Porcine) 5,000 units 08/15/20 09:00 08/17/20 08:34 Heparin 5,000 Units/Ml Vial SC 5,000 units TID SHAVON Administration Hydralazine HCl 25 mg 08/17/20 09:00 08/17/20 08:24 Hydralazine 25 Mg Tab PO 25 mg BID SHAVON Administration Insulin Human Lispro 0 units 08/14/20 22:38 08/16/20 16:20 Humalog 300 Units/3 Ml Vial SC 2 unit .MILD SLIDING SCALE PRN Administration Mild Correctional Scale Insulin Human Lispro 0 units 08/16/20 21:01 08/16/20 22:01 Humalog 300 Units/3 Ml Vial SC 2 units .BEDTIME SLIDING SC PRN Administration Bedtime Correctional Scale Sodium Chloride 10 ml 08/15/20 09:00 08/17/20 08:25 Flush - Normal Saline 10 Ml Syringe IVF 10 ml Q12HR SHAVON Administration Tamsulosin HCl 0.4 mg 08/15/20 21:00 08/16/20 20:31 Tamsulosin Hcl 0.4 Mg Cap PO 0.4 mg HS SHAVON Administration Valsartan 160 mg 08/16/20 09:00 08/17/20 08:24 Valsartan 80 Mg Tab PO 160 mg DAILY SHAVON Administration - Exam General Appearance: awake alert Eye: PERRL ENT: normocephalic atraumatic Neck: supple Respiratory: CTAB Cardiovascular: RRR Gastrointestinal: soft Extremities: no cyanosis Skin: normal turgor Neurological: CN's grossly intact, normal sensation to touch, no weakness, no focal deficits, no new deficit Musculoskeletal: normal tone, normal strength, no muscle wasting, generalized weakness PSYCH: normal affect, normal behavior Results - Labs Result Diagrams: 08/16/20 08:39 08/16/20 08:39 Lab results: WBC 8.2 thou/uL (4.8-10.8) 08/16/20 08:39 Hgb 12.5 g/dL (14.0-18.0) L 08/16/20 08:39 Hct 39.5 % (42.0-52.0) L 08/16/20 08:39 MCV 87.9 fL (78.0-98.0) 08/16/20 08:39 Plt Count 216 thou/uL (130-400) 08/16/20 08:39 Neutrophils % 61.9 % (42.0-75.0) 08/16/20 08:39 Sodium 139 mmol/L (136-145) 08/16/20 08:39 Potassium 3.9 mmol/L (3.5-5.1) 08/16/20 08:39 Chloride 107 mmol/L (98-107) 08/16/20 08:39 Carbon Dioxide 24 mmol/L (23-31) 08/16/20 08:39 BUN 20 mg/dL (8.4-25.7) 08/16/20 08:39 Creatinine 1.78 mg/dL (0.7-1.3) H 08/16/20 08:39 Glucose 147 mg/dL (83-110) H 08/16/20 08:39 Lactic Acid 1.2 mmol/L (0.5-2.2) 08/14/20 18:22 Calcium 8.3 mg/dL (7.8-10.44) 08/16/20 08:39 Total Bilirubin 0.7 mg/dL (0.2-1.2) 08/16/20 08:39 AST 16 U/L (5-34) 08/16/20 08:39 ALT 11 U/L (8-55) 08/16/20 08:39 Alkaline Phosphatase 65 U/L (40-110) 08/16/20 08:39 Ammonia 27 umol/L (18-72) 08/16/20 08:39 Troponin I 0.035 ng/mL (< 0.028) H 08/16/20 08:39 Serum Total Protein 5.8 g/dL (5.8-8.1) 08/16/20 08:39 Albumin 3.1 g/dL (3.4-4.8) L 08/16/20 08:39 Lipase 7 U/L (8-78) L 08/14/20 18:22 Urine Ketones Negative mg/dL (Negative) 08/14/20 19:47 Urine Blood 1+ (Negative) A 08/14/20 19:47 Urine Nitrite Negative (Negative) 08/14/20 19:47 Ur Leukocyte Esterase Negative Jennifer/uL (Negative) 08/14/20 19:47 Urine RBC 0-3 HPF (0-3) 08/14/20 19:47 Urine WBC None Seen HPF (0-3) 08/14/20 19:47 Ur Squamous Epith Cells None Seen HPF (0-3) 08/14/20 19:47 Urine Bacteria None Seen HPF (None Seen) 08/14/20 19:47 - Radiology Interpretation CT scan - head Additional Comment: Head CT negative for acute intracranial pathology. PN A/P (1) AMS (altered mental status) Code(s): R41.82 - ALTERED MENTAL STATUS, UNSPECIFIED Status: Acute (2) Hypertension Code(s): I10 - ESSENTIAL (PRIMARY) HYPERTENSION Status: Acute (3) Back pain Code(s): M54.9 - DORSALGIA, UNSPECIFIED Status: Acute (4) Hydrocodone use disorder, mild Code(s): F11.10 - OPIOID ABUSE, UNCOMPLICATED Status: Acute - Plan Daily Plan: PT/OT, speech therapy, DVT proph w/SCDs Mr. Ahn is a 74-year-old male who was brought to the hospital by his because of altered mental status and confusion. Altered mental status is now resolved which is most likely secondary to use of pain medications . Patient still complains of back pain and generalized weakness. Intracranial process seems less likely since absence of focal deficits on neurological exam and head CT was negative for acute intracranial pathology. EEG was also reviewed and was negative for seizure activity. Continue home medications. Continue medical management per primary team. PT/OT/speech DVT prophylaxis For control of blood pressure and blood glucose. Continue medical management per primary team. Plan discussed in detail with the patient's at bedside and all her questions were answered.
--- NOTE | 2020-08-17 17:39 | PDOC.HOSPP ---
- Subjective Encounter Date: 08/17/20 Encounter Time: 11:45 Subjective: pt up in bed complains of some lower back pain. - Objective Vital Signs & Weight: Vital Signs (12 hours) Temp Pulse Resp BP BP Pulse Ox 08/17/20 11:57 97.3 F L 56 L 18 154/80 H 95 08/17/20 07:15 97.9 F 60 18 188/81 H 95 Weight Admit Weight 253 lb Weight 253 lb 1.451 oz Most Recent Monitor Data Heart Rate from ECG 77 NIBP 167/78 NIBP BP-Mean 107 Respiration from ECG 18 SpO2 95 I&O: 08/16/20 08/17/20 08/18/20 06:59 06:59 06:59 Intake Total 1743 1898 Output Total 800 Balance 943 1898 Result Diagrams: 08/16/20 08:39 08/16/20 08:39 Additional Labs: Accuchecks 08/17/20 08/17/20 08/17/20 16:27 11:35 04:40 POC Glucose 245 H 235 H 165 H 08/16/20 20:40 POC Glucose 241 H Hospitalist ROS - Review of Systems Cardiovascular: denies: chest pain, palpitations, orthopnea, paroxysmal noc. dyspnea, edema, light headedness, other Gastrointestinal: denies: nausea, vomiting, abdominal pain, diarrhea, constipation, melena, hematochezia, other Genitourinary: denies: dysuria, frequency, incontinence, hematuria, retention, other Musculoskeletal: reports: back pain - Medication Medications: Active Medications Generic Name Dose Route Start Last Admin Trade Name Freq PRN Reason Stop Dose Admin Amlodipine Besylate 10 mg 08/16/20 09:00 08/17/20 08:24 Amlodipine 10 Mg Tab PO 10 mg DAILY SHAVON Administration Carvedilol 25 mg 08/16/20 17:00 08/17/20 08:24 Carvedilol 25 Mg Tab PO 25 mg BID-WM SHAVON Administration Heparin Sodium (Porcine) 5,000 units 08/15/20 09:00 08/17/20 08:34 Heparin 5,000 Units/Ml Vial SC 5,000 units TID SHAVON Administration Hydralazine HCl 25 mg 08/17/20 09:00 08/17/20 08:24 Hydralazine 25 Mg Tab PO 25 mg BID SHAVON Administration Insulin Human Lispro 0 units 08/14/20 22:38 08/16/20 16:20 Humalog 300 Units/3 Ml Vial SC 2 unit .MILD SLIDING SCALE PRN Administration Mild Correctional Scale Insulin Human Lispro 0 units 08/16/20 21:01 08/16/20 22:01 Humalog 300 Units/3 Ml Vial SC 2 units .BEDTIME SLIDING SC PRN Administration Bedtime Correctional Scale Sodium Chloride 10 ml 08/15/20 09:00 08/17/20 08:25 Flush - Normal Saline 10 Ml Syringe IVF 10 ml Q12HR SHAVON Administration Tamsulosin HCl 0.4 mg 08/15/20 21:00 08/16/20 20:31 Tamsulosin Hcl 0.4 Mg Cap PO 0.4 mg HS SHAVON Administration Valsartan 160 mg 08/16/20 09:00 08/17/20 08:24 Valsartan 80 Mg Tab PO 160 mg DAILY SHAVON Administration - Exam Neck: negative: supple, symmetric, no JVD, no thyromegaly, no lymphadenopathy, no carotid bruit, JVD Heart: negative: RRR, no murmur, no gallops, no rubs, normal peripheral pulses, irregular, diminshed peripheral pulses, murmur present, II/IV, III/IV Respiratory: negative: CTAB, no wheezes, no rales, no ronchi, normal chest expansion, no tachypnea, normal percussion, rales, rhonchi, tachypneic, wheezes Gastrointestinal: negative: soft, non-tender, non-distended, normal bowel sounds, no palpable masses, no hepatomegaly, no splenomegaly, no bruit, no guarding, no rigidity, tender to palpation, distended, diminished bowl sounds, voluntary guarding Extremities: 1+ LE edema Neurological - other findings: follows command and oriented x3 Hosp A/P (1) Acute metabolic encephalopathy Code(s): G93.41 - METABOLIC ENCEPHALOPATHY Status: Acute (2) Back pain Code(s): M54.9 - DORSALGIA, UNSPECIFIED Status: Acute (3) Hydrocodone use disorder, mild Code(s): F11.10 - OPIOID ABUSE, UNCOMPLICATED Status: Acute (4) Hypertension Code(s): I10 - ESSENTIAL (PRIMARY) HYPERTENSION Status: Acute - Plan Patient's at bedside questions answered. His encephalopathy most likely secondary to narcotic overdose. I do not suspect any meningitis. Neurology to see the patient. Patient was on Cardene drip which has been off will start patient's home medications. 08/16 patient up in bed more awake. Will start patient's home medications. Patient refused MRI brain. Antibiotics have been discontinued. Possible discharge in the next 24 to 48 hours 08/17 Discussed pt's current medical condition with family and . pt at baseline uses crutches and wheelchair and family feels he will need snf. Pt refused MRI brain. EEG negative. His metabolic encephalopathy most likely due to narcotics. Pt will need to go to pain management as outpatient for other options. His pain medication dose has been decreased. PT has been ordered for him. will continue to monitor. Per nursing staff he has been agitated at times but at the same time states that if they did what he wanted he would have not acted out. I asked the pt's family if he has any underlying psychiatry or PTSD and they refused. echo ordered.
[2020-08-17] MEDS: Tamsulosin HCl 0.4 MG CAP PO SCH (20:32)
[2020-08-18] MEDS: HumaLOG 300 UNITS/3 ML VIAL SC PRN ×4 (06:04→21:04)
[2020-08-18] MEDS: hydrALAZINE 25 MG TAB PO SCH ×2 (08:22→21:03)
[2020-08-18] MEDS: Amlodipine 10 MG TAB PO SCH (08:22)
[2020-08-18] MEDS: Carvedilol 25 MG TAB PO SCH ×2 (08:22→16:34)
[2020-08-18] MEDS: Valsartan 80 MG TAB PO SCH (08:23)
[2020-08-18] MEDS: Heparin 5,000 UNITS/ML VIAL SC SCH ×3 (08:23→21:04)
[2020-08-18 09:43] LABS: Anion Gap 14 mmol/L (10-20); BUN (Urea Nitrogen) 18 mg/dL (8.4-25.7); Calc. Creatinine Clearance 49 mL/min (70-130); Calcium 8.9 mg/dL (7.8-10.44); Carbon Dioxide 26 mmol/L (23-31); Chloride 107 mmol/L (98-107); Glucose 220 mg/dL (83-110); Potassium 4.1 mmol/L (3.5-5.1); Sodium 143 mmol/L (136-145)
[2020-08-18] MEDS ORDERED: hydrALAZINE 25 MG TAB PO SCH ×2 (11:45→15:00)
--- NOTE | 2020-08-18 15:39 | PDOC.HOSPP ---
- Subjective Encounter Date: 08/18/20 Encounter Time: 09:00 Subjective: The patient states he feels well. No headache, nausea, vomiting. He is oriented times three THe patient states that he wants to go home. He has been walking with crutches for months due to chronic pain in his legs and his back. prefers patient to stay one more day HTN - BP was 160 this morning then increased to 170. Hydralazine given at 8 am and 2 pm, repeat BP at 3 showed improvement to 155 - Objective Vital Signs & Weight: Vital Signs (12 hours) Temp Pulse Resp BP BP BP Pulse Ox 08/18/20 13:26 55 L 167/89 H 08/18/20 11:53 98.0 F 55 L 16 167/89 H 96 08/18/20 08:22 65 163/82 H 08/18/20 07:58 98.3 F 65 15 162/84 H 92 L 08/18/20 04:14 98.5 F 57 L 18 149/81 H 95 Weight Admit Weight 253 lb Weight 253 lb 1.451 oz Most Recent Monitor Data Heart Rate from ECG 77 NIBP 167/78 NIBP BP-Mean 107 Respiration from ECG 18 SpO2 95 I&O: 08/17/20 08/18/20 08/19/20 06:59 06:59 06:59 Intake Total 1898 1420 480 Balance 1898 1420 480 Result Diagrams: 08/16/20 08:39 08/18/20 09:06 Additional Labs: Accuchecks 08/18/20 08/18/20 08/17/20 11:54 04:17 20:01 POC Glucose 204 H 207 H 184 H 08/17/20 16:27 POC Glucose 245 H Hospitalist ROS - Review of Systems Constitutional: denies: fever, chills - Medication Medications: Active Medications Generic Name Dose Route Start Last Admin Trade Name Freq PRN Reason Stop Dose Admin Amlodipine Besylate 10 mg 08/16/20 09:00 08/18/20 08:22 Amlodipine 10 Mg Tab PO 10 mg DAILY SHAVON Administration Carvedilol 25 mg 08/16/20 17:00 08/18/20 08:22 Carvedilol 25 Mg Tab PO 25 mg BID-WM SHAVON Administration Heparin Sodium (Porcine) 5,000 units 08/15/20 09:00 08/18/20 08:23 Heparin 5,000 Units/Ml Vial SC 5,000 units TID SHAVON Administration Insulin Human Lispro 0 units 08/14/20 22:38 08/18/20 12:28 Humalog 300 Units/3 Ml Vial SC 3 unit .MILD SLIDING SCALE PRN Administration Mild Correctional Scale Insulin Human Lispro 0 units 08/16/20 21:01 08/16/20 22:01 Humalog 300 Units/3 Ml Vial SC 2 units .BEDTIME SLIDING SC PRN Administration Bedtime Correctional Scale Sodium Chloride 10 ml 08/15/20 09:00 08/18/20 08:23 Flush - Normal Saline 10 Ml Syringe IVF 10 ml Q12HR SHAVON Administration Tamsulosin HCl 0.4 mg 08/15/20 21:00 08/17/20 20:32 Tamsulosin Hcl 0.4 Mg Cap PO 0.4 mg HS SHAVON Administration Valsartan 160 mg 08/16/20 09:00 08/18/20 08:23 Valsartan 80 Mg Tab PO 160 mg DAILY SHAVON Administration - Exam General Appearance: NAD, awake alert General - other findings: obese Eye: PERRL, anicteric sclera ENT: normocephalic atraumatic, no oropharyngeal lesions Neck: no JVD Heart: RRR, no murmur, no gallops, no rubs Respiratory: CTAB, no wheezes, no rales, no ronchi Gastrointestinal: soft, non-tender, non-distended, normal bowel sounds Extremities: no cyanosis, no clubbing, no edema Skin: normal turgor, no lesions, no rashes Neurological: cranial nerve grossly intact, normal sensation to touch, no weakness Hosp A/P - Plan This is 74 year old male who presented with co nfusion and hypertensive urgency Acute metabolic encephalopathy - possibly from narcotics taken at home versus elevated BP - currently resolved, oriented times three Hypertensive urgency - presented with BP 160/100 and up to 190 - on hydralazine, coreg, valsartan. Willi ncrease hydralazine to 25 mg tid. Monitor for another 24 hours Muscle cramps - will trial flexeril prn Physical deconditioning - rehab recommended, and patient prefer for him to go home Type II Diabetes - continue sliding scale CKD - creatinine 2.0, stable, baseline ranges from 1.7 to 2
[2020-08-18] MEDS: Tamsulosin HCl 0.4 MG CAP PO SCH (21:03)
[2020-08-18] MEDS: Cyclobenzaprine 10 MG TAB PO PRN (21:04)
[2020-08-19] MEDS: HumaLOG 300 UNITS/3 ML VIAL SC PRN ×2 (05:28→12:19)
[2020-08-19 06:31] LABS: Anion Gap 13 mmol/L (10-20); BUN (Urea Nitrogen) 23 mg/dL (8.4-25.7); Calc. Creatinine Clearance 52 mL/min (70-130); Calcium 8.8 mg/dL (7.8-10.44); Carbon Dioxide 26 mmol/L (23-31); Chloride 106 mmol/L (98-107); Glucose 233 mg/dL (83-110); Sodium 141 mmol/L (136-145)
[2020-08-19] MEDS: Carvedilol 25 MG TAB PO SCH (08:25)
[2020-08-19] MEDS: Amlodipine 10 MG TAB PO SCH (08:25)
[2020-08-19] MEDS: hydrALAZINE 25 MG TAB PO SCH (08:26)
[2020-08-19] MEDS: Valsartan 80 MG TAB PO SCH (08:26)
[2020-08-19] MEDS: Heparin 5,000 UNITS/ML VIAL SC SCH (08:26)
--- NOTE | 2020-08-19 10:59 | PDOC.DS.DS ---
Provider - Provider Date of Admission: 08/14/20 21:02 Date of Discharge: 08/19/20 Admitting Provider: Vani Reyna MD Consultations: Neurology (Dr. Jenny Tapia), Pulmonary (Dr Velazquez) Primary Care Physician: Zafar Phelps Jr, MD Course - Hospital Course Hospital Course: Discharge Diagnoses: 1. Acute encephalopathy possibly secondary to oxycodone or hypertensive urgency 2. Muscle cramps 3. Meningioma 4. Physical deconditioning 5. CKD 6. Anemia 7. Type II diabetes Brief HPI: This is a 74 year old male with pas tmedical history of hypertension, diabetes who presented ot the ER with low grade fever, confusion. The patient has chronic pain and had been taking oxycodone for about a month. He did not recall taking any extra doses. He was complaint with his blood pressure medicine but stated he forgot to take his medicines occasionally. When he presented to the hospital, his blood pressure was 162/105. He was admitted for possible meningitis/encephalitis and was started on acyclovir, vancomycin, cefepime,. He was given narcan without significant improvement . Hospital Course: Acute metabolic encephalopathy possibly secondary to narcotic overdose or hypertensive urgency: The patient was originally admitted to the ICU and started on a nicardipine drip. He was given antibiotics for suspected meningitis/encephalitis. LP was not able to be done since the patient was moving too much. Neurology was consulted, EEG was performed which showed no seizure a ctivity. The patient refused an MRI of the brain. Antibiotics were discontinued and the patient did well. His blood pressure was controlled to the 140's with hydralazine 25 mg tid, amlodipine 10 mg daily, coreg 25 mg po bid and valsartan. The patient will be discharged and will follow up with his primary doctor in a week for additional blood pressure titration. Physical deconditioning/Muscle spasms: the patient was seen by physical therapy for chronic pain and gait instability. They recommended rehab. THe patient has been using crutches for months. He was ambulating with a walker here, but prefers the crutches. He did not want to go to rehab and preferred to go home so he will be discharged home. He was given flexeril for muscle spasms which helped so will be discharged with a few days of this. Oxycodone was discontinued on discharge. Meningioma: this was noted incidentally on CT scan. The patietn refuesd brain MRI. He has no headaches. He can follow up with neurology or neurosurgery as an outpatient. Pertinent Studies: CT brain: right frontal calcified meningioma. Chronic right maxillary sinus disease. CT cervical spine: degenerative changes of the cervical spine. CT abdomen/pelvis: distended gallbladder, small kidneys Chest X ray : cardiomegaly Resuscitation Status: 08/14/20 22:39 Resuscitation Status Routine Resuscitation Status: FULL: Full Resuscitation - Labs Lab Results: 08/16/20 08:39 08/19/20 05:39 Abnormal Lab Results - Last 48 hrs 08/18/20 09:06: Creatinine 2.09 H 08/19/20 05:39: Creatinine 1.96 H Microbiology - Entire Visit 08/14/20 19:47 Urine Straight Catheter Urine Culture - Final NO GROWTH AT 36 HOURS 08/14/20 18:30 Venous blood - Left Arm Blood Culture - Preliminary NO GROWTH AT 48 HOURS 08/14/20 18:22 Venous blood - Right Arm Blood Culture - Preliminary NO GROWTH AT 48 HOURS - Physical Exam Vitals: Vital Signs (12 hours) Temp Pulse Resp BP BP Pulse Ox 08/19/20 08:26 61 177/61 H 08/19/20 08:25 61 177/61 H 08/19/20 07:31 97.9 F 61 16 176/75 H 94 L 08/19/20 05:03 97.9 F 54 L 18 144/74 H 93 L 08/19/20 00:00 98.9 F 61 16 147/74 H 92 L Weight Admit Weight 253 lb Weight 253 lb 1.451 oz Most Recent Monitor Data Heart Rate from ECG 77 NIBP 167/78 NIBP BP-Mean 107 Respiration from ECG 18 SpO2 95 Physical Exam: The patient was seen and examined on the day of discharge. General Appearance: NAD, awake alert General - other findings: obese Eye: PERRL, anicteric sclera ENT: normocephalic atraumatic, no oropharyngeal lesions Neck: no JVD Heart: RRR, no murmur, no gallops, no rubs Respiratory: CTAB, no wheezes, no rales, no ronchi Gastrointestinal: soft, non-tender, non-distended, normal bowel sounds Extremities: no cyanosis, no clubbing, no edema Skin: normal turgor, no lesions, no rashes Neurological: cranial nerve grossly intact, normal sensation to touch, no weakness Problem - Time spent with Patient (mins): 35 Plan - Discharge Medications Prescriptions: hydrALAZINE [Apresoline] 25 mg PO TID #90 tab Carvedilol [Coreg] 25 mg PO BID-WM #60 tab Cyclobenzaprine [Flexeril] 5 mg PO TID PRN #5 tab PRN Reason: Muscle Spasm Amlodipine [Norvasc] 10 mg PO DAILY #30 tab Home Medications: Medication Instructions Recorded Confirmed Type Clobetasol Propionate/Emoll 1 applic TOP BID 08/15/20 08/15/20 History [Clobetasol Propionate 0.05% Emoll Cream] Tamsulosin HCl 0.4 mg PO DAILY 08/15/20 08/16/20 History Valsartan 160 mg PO DAILY 08/15/20 08/15/20 History Amlodipine [Norvasc] 10 mg PO DAILY #30 tab 08/19/20 Rx Carvedilol [Coreg] 25 mg PO BID-WM #60 tab 08/19/20 Rx Cyclobenzaprine [Flexeril] 5 mg PO TID PRN #5 tab 08/19/20 Rx hydrALAZINE [Apresoline] 25 mg PO TID #90 tab 08/19/20 Rx Allergies: No Known Drug Allergies Allergy (Verified 08/15/20 01:45) notes - Discharge Instructions Activity:: Activity as Tolerated Nourishment:: Heart Healthy Diet - Follow up Plan Referrals: Zafar Phelps Jr, MD [Primary Care Provider] - Disposition: HOME Quality - Care Measures CORE MEASURES:: N/A
[2020-08-19] MEDS: Cyclobenzaprine 10 MG TAB PO PRN (12:44)
[2020-08-19 14:08] VITALS: BP 153/85; TEMP 97.6
== END 2020-08-19 13:30 | disposition home or self-care (01) | DRG 917 ==
LOC: ERS 17:49 → ERHOLD 21:02 → CCU 08-15 00:25 → T4-B 08-16 16:26
PROVIDERS: ADMIT Internal Medicine; ATTEND Internal Medicine
DX: T40.2X1A Poisoning by other opioids, accidental (unintentional), initial encounter (principal); G92 Toxic encephalopathy; Y92.9 Unspecified place or not applicable; I16.0 Hypertensive urgency; E78.00 Pure hypercholesterolemia, unspecified; M19.90 Unspecified osteoarthritis, unspecified site; I25.10 Atherosclerotic heart disease of native coronary artery without angina pectoris; N18.30 Chronic kidney disease, stage 3 unspecified; E11.22 Type 2 diabetes mellitus with diabetic chronic kidney disease; I12.9 Hypertensive chronic kidney disease with stage 1 through stage 4 chronic kidney disease, or unspecified chronic kidney disease; Z96.651 Presence of right artificial knee joint; Z96.41 Presence of insulin pump (external) (internal); D32.9 Benign neoplasm of meninges, unspecified; M54.9 Dorsalgia, unspecified; R53.81 Other malaise; Z87.891 Personal history of nicotine dependence; R26.89 Other abnormalities of gait and mobility; Z20.828 Contact with and (suspected) exposure to other viral communicable diseases
CPT/HCPCS: 36415; 36416; 51701; 70450; 71045; 72125; 74177; 80048; 80053; 80306; 81003; 81015; 82140; 83605; 83690; 84484; 85025; 87040; 87086; 93005; 93306; 95712; 95819; 95957; 96365; 96366; 96367; 96368; 96375; 99292; J0133; J0360; J0692; J0696; J1630; J1644; J2060; J2310; J3370; J3490; J7050; Q9967; U0002